=== PATIENT | male | born 1965 | race Two or more races ===

== ENCOUNTER 2020-09-20 19:46 | Emergency (ER) | payer SELFPAY ==
[~2020-09-20] VITALS: Ht 188 cm; Wt 107.0 kg
[2020-09-20 20:00] VITALS: Ht 188 cm; Wt 107.0 kg
[2020-09-20 21:59] VITALS: BP 154/96
== END 2020-09-20 22:12 | disposition home or self-care (01) ==
LOC: ED 19:46
DX: U07.1 COVID-19 (principal); E11.9 Type 2 diabetes mellitus without complications; E78.00 Pure hypercholesterolemia, unspecified
CPT/HCPCS: 82962; 99406; U0003